=== PATIENT | male | born 1960 | race Caucasian/White ===

== ENCOUNTER → 2016-11-21 | Outpatient (CLI) | payer OTHER ==
[~2016-11-21] MED LIST: CALCIUM 500500 M2 PO; CELEXA 20MG20 MG/TAB PO; LIPITOR 40MG TA40 MG PO; MULTIPLE VITAMI1 CAP PO; PREVACID 15MG15 M1 PO
== END ==
LOC: COL.RAD 08:12
DX: J43.9 Emphysema, unspecified (principal); D35.02 Benign neoplasm of left adrenal gland; D35.01 Benign neoplasm of right adrenal gland; R91.8 Other nonspecific abnormal finding of lung field
CPT/HCPCS: Q9967

== ENCOUNTER 2017-01-05 06:22 | Day surgery (SDC) | payer OTHER ==
[~2017-01-05] VITALS: Ht 188 cm; Wt 95.2 kg
[2017-01-05 06:45] VITALS: BP 87/59; PULSE 84; TEMP 98.2
[2017-01-05 08:04] VITALS: BP 105/67; PULSE 74; TEMP 97.3
[2017-01-05 08:15] VITALS: BP 96/56; PULSE 76
[2017-01-05 08:28] VITALS: BP 94/59; PULSE 66
== END 2017-01-05 08:30 | disposition home or self-care (01) ==
LOC: SDCO 06:22
DX: Z12.11 Encounter for screening for malignant neoplasm of colon (principal); D12.3 Benign neoplasm of transverse colon; K57.30 Diverticulosis of large intestine without perforation or abscess without bleeding; Z86.010 Personal history of colon polyps
CPT/HCPCS: OP; J2250; J3010; J7030

== ENCOUNTER → 2017-02-23 | Outpatient (CLI) | payer OTHER | LOC: COL.RAD 09:52 | DX: J43.9 Emphysema, unspecified (principal) | CPT/HCPCS: J7050; Q9967 ==

== ENCOUNTER 2018-12-24 09:18 | Outpatient (RCR) | payer OTHER | END 2018-12-25 08:50 | disposition home or self-care (01) | LOC: WSOH 09:18 | DX: S16.1XXA Strain of muscle, fascia and tendon at neck level, initial encounter (principal); V59.40XA Driver of pick-up truck or van injured in collision with unspecified motor vehicles in traffic accident, initial encounter; Y92.414 Local residential or business street as the place of occurrence of the external cause; Y99.0 Civilian activity done for income or pay; E78.00 Pure hypercholesterolemia, unspecified; Z79.899 Other long term (current) drug therapy ==

== ENCOUNTER → 2019-04-25 | Outpatient (CLI) | payer OTHER | LOC: COL.VAS 10:22 | DX: R60.0 Localized edema (principal); R79.89 Other specified abnormal findings of blood chemistry ==

== ENCOUNTER → 2019-05-12 | Outpatient (CLI) | payer OTHER | LOC: COL.RAD 07:54 | DX: R22.0 Localized swelling, mass and lump, head (principal) | CPT/HCPCS: Q9967 ==

== ENCOUNTER → 2019-09-11 | Outpatient (CLI) | payer OTHER | LOC: ZCOL.LAB 17:48 | DX: Z20.828 Contact with and (suspected) exposure to other viral communicable diseases (principal) ==

== ENCOUNTER → 2020-06-28 | Outpatient (CLI) | payer OTHER | LOC: COL.RAD 07:25 | DX: E27.8 Other specified disorders of adrenal gland (principal); M43.16 Spondylolisthesis, lumbar region; M43.18 Spondylolisthesis, sacral and sacrococcygeal region; R10.12 Left upper quadrant pain | CPT/HCPCS: Q9967 ==